=== PATIENT | female | born 1935 | race Caucasian/White ===

== ENCOUNTER 2016-08-04 07:56 | Day surgery (SDC) | payer MEDICARE, BC ==
[~2016-08-04] VITALS: Ht 160 cm; Wt 62.1 kg
[~2016-08-04 07:56] MED LIST: ASPIRIN E.C. 8181 MG PO; ATENOLOL25 MG PO; AZOPT; AZOPT 10 ML10 ML; AZOPT 10 ML10 ML OU; CALCIUM 500500 M2 PO; CALCIUM CARBON600 M1 PO; CEFTIN500 MG PO; CENTRUM1 TAB PO; CIPRO 500MG TA500 MG PO; CLEOCIN HC150 MG/CAP PO; CLOPIDOGREL; COLACE 100100 MG/CAP PO; FLONASEALLERGY NS; FLOVENT 110MCG7.9 GM IH; FLOVENT 220MCG7.9 GM IH; IPRATROPIUM BROM3 M1 IH; LEVAQUIN 5500 MG/TA1 PO; LIPITOR 40MG TA40 MG PO; LOPRESSOR 550 MG/TAB PO; MEDROL 4MG DOSPA4 MG PO; NITROSTAT0.4 MG/TAB SL; NORCO 325 MG-51 TAB PO; OYSTER SHELL C500 M3 PO; PEPCID 20MG TAB20 MG PO; PEPCID40 MG PO; PLAVIX 75MG TAB75 MG PO; PREDNISONE10 MG PO; PRILOSEC; PROAIR HFA0.09 MG/AC IH; PYRIDIUM 100MG100 MG PO; SINGULAIR 110 MG/TAB PO; STOOL SOFTENER100 M1 PO; TESSALON PERLE200 MG PO; TOPROL XL100 MG PO; TRAVATAN 2.5 M2.5 M1; TRAVATAN 2.5 M2.5 ML OP; TUSS PO; XALATAN EYE DROPS OD; XALATAN EYE DROPS OU; ZITHROMAX Z PA250 MG PO; ZITHROMAX500 M2 PO; ZOCOR 20MG20 MG PO; ZOCOR 40MG40 MG PO; ZYRTEC 10MG10 MG PO
[2016-08-04 08:56] VITALS: BP 123/81; PULSE 113; TEMP 97.6
[2016-08-04] MEDS ORDERED: STOOL SOFTENER100 M2 PO (09:06)
[2016-08-04 10:10] VITALS: BP 150/94; PULSE 104; TEMP 98
[2016-08-04 10:25] VITALS: BP 115/72; PULSE 102
[2016-08-04 10:40] VITALS: BP 122/68; PULSE 105
[2016-08-04] MEDS ORDERED: LEVAQUIN 750MG750 M1 PO (10:44)
[2016-08-04 10:54] VITALS: BP 100/60; PULSE 100
[2016-08-04 14:24] VITALS: BP 127/74; PULSE 103
== END 2016-08-04 11:15 | disposition home or self-care (01) ==
LOC: SDCO 07:56
DX: J40 Bronchitis, not specified as acute or chronic (principal); J39.8 Other specified diseases of upper respiratory tract; R05 Cough; I10 Essential (primary) hypertension; I25.2 Old myocardial infarction; Z86.73 Personal history of transient ischemic attack (TIA), and cerebral infarction without residual deficits; Z79.899 Other long term (current) drug therapy; Z79.82 Long term (current) use of aspirin
CPT/HCPCS: J1580; J2704; J7120; J7512

== ENCOUNTER 2016-08-04 17:09 | Emergency (ER) | payer MEDICARE, BC ==
[~2016-08-04] VITALS: Ht 160 cm; Wt 59.1 kg
[~2016-08-04 17:09] MED LIST changes: +LEVAQUIN 750MG750 M1 PO; +STOOL SOFTENER100 M2 PO
[2016-08-04 17:22] VITALS: TEMP 98.9
[2016-08-04 19:36] LABS: BASO # 0.1 (0.0-0.2); BASO % 0.4 % (0.0-2.0); EOS # 1.8 (0.0-0.7); EOS % 13.2 % (0-4.0); GRAN # 9.2 (1.4-6.5); GRAN % 67.2 % (42.2-75.2); HEMATOCRIT 40.2 % (37.0-47.0); HEMOGLOBIN 13.2 g/dl (12.5-16.0); LYMPH # 1.5 (1.2-3.4); MEAN CELL VOLUME 93 fl (80.0-100.0); MEAN CORPUSCULAR HEMOGLOBIN 31 pg (27.0-31.0); MEAN CORPUSCULAR HGB CONC 33 g/dl (33.0-37.0); MEAN PLATELET VOLUME 9.4 fl (7.4-10.4); MONO # 1.1 (0.1-0.6); MONO % 7.8 % (1.7-9.3); PLATELET COUNT 238 K/mm3 (130-400); RED BLOOD COUNT 4.31 M/mm3 (4.10-5.30); REDCELL DISTRIBUTION WIDTH-CV 13.4 % (11.5-14.5); WHITE BLOOD COUNT 13.6 K/mm3 (4.8-10.8)
[2016-08-04 19:49] LABS: ANION GAP 11 mmol/L (7-16); BLOOD UREA NITROGEN 14 mg/dL (7-17); CALCIUM 9.1 mg/dL (8.4-10.2); CARBON DIOXIDE 24 mmol/L (22-30); CHLORIDE 99 mmol/L (98-107); CREATININE, serum 0.64 mg/dL (0.52-1.25); GLUCOSE 217 mg/dL (74-106); SODIUM 134 mmol/L (137-145)
[2016-08-04 20:01] LABS: B-TYPE NATRIURETIC PEPTIDE 339 pg/mL (0-450)
[2016-08-04 20:04] LABS: TROPONIN-I < 0.012 ng/mL (0.000-0.034)
[2016-08-04 21:02] VITALS: BP 118/76; PULSE 94
== END 2016-08-04 21:02 | disposition home or self-care (01) ==
LOC: COL.ER 17:09
PROVIDERS: Emergency Medicine
DX: R06.02 Shortness of breath (principal); I10 Essential (primary) hypertension; I25.10 Atherosclerotic heart disease of native coronary artery without angina pectoris; Z86.73 Personal history of transient ischemic attack (TIA), and cerebral infarction without residual deficits; I25.2 Old myocardial infarction; Z79.02 Long term (current) use of antithrombotics/antiplatelets
CPT/HCPCS: J7512

== ENCOUNTER 2016-08-20 16:20 | Emergency (ER) | payer MEDICARE, BC ==
[~2016-08-20] VITALS: Ht 160 cm; Wt 61.4 kg
[2016-08-20 16:26] VITALS: TEMP 98.6
[2016-08-20 18:21] VITALS: BP 110/70; PULSE 98
== END 2016-08-20 18:23 | disposition home or self-care (01) ==
LOC: COL.ER 16:20
DX: K59.00 Constipation, unspecified (principal)

== ENCOUNTER → 2016-09-03 | Outpatient (CLI) | payer MEDICARE, BC | LOC: MC.RAD 09-01 09:20 | DX: Z12.31 Encounter for screening mammogram for malignant neoplasm of breast (principal); Z80.3 Family history of malignant neoplasm of breast ==

== ENCOUNTER → 2017-09-06 | Outpatient (CLI) | payer MEDICARE, BC ==
[~2017-09-06] MED LIST changes: +GLUCOPHAGE500 MG/TAB PO; +MUCINEX 60600 MG/TA1 PO
== END ==
LOC: MC.RAD 12:51
DX: Z12.31 Encounter for screening mammogram for malignant neoplasm of breast (principal)

== ENCOUNTER → 2018-07-19 | Outpatient (CLI) | payer MEDICARE, BC | LOC: COL.VAS 12:45 | DX: M79.89 Other specified soft tissue disorders (principal); R60.0 Localized edema ==

== ENCOUNTER → 2018-10-19 | Outpatient (CLI) | payer MEDICARE, BC | LOC: MC.RAD 09-07 13:00 | DX: Z12.31 Encounter for screening mammogram for malignant neoplasm of breast (principal) ==